=== PATIENT | female | born 1975 | race Caucasian/White ===

== ENCOUNTER 2018-08-10 14:14 | Emergency (ER) | payer OTHER ==
[~2018-08-10] VITALS: Ht 172.7 cm; Wt 82.1 kg
[2018-08-10] MEDS ORDERED: ZANTAC 150MG T150 MG PO (14:31)
[2018-08-10] MEDS ORDERED: ZYRTEC10 M5 PO (14:31)
[2018-08-10 15:08] LABS: ANION GAP 12 mmol/L (7-16); BUN 12 mg/dL (7-18); CALCIUM 9.4 mg/dL (8.5-10.1); CHLORIDE 101 mmol/L (98-107); CO2 24 mmol/L (21-32); CREATININE 0.9 mg/dL (0.6-1.3); GLUCOSE 147 mg/dL (70-99); SODIUM 137 mmol/L (136-145)
[2018-08-10 15:16] LABS: ABSOLUTE EOSINOPHILS 0.1 thou/uL (0.0-0.7); ABSOLUTE LYMPHOCYTES 1.9 thou/uL (0.8-5.3); ABSOLUTE MONOCYTES 0.6 thou/uL (0.0-1.2); BASOPHILS 0.3 %; EOSINOPHILS 0.8 %; HEMATOCRIT 42.6 % (37.0-47.0); HEMOGLOBIN 14.6 gm/dL (12.0-15.0); LYMPHOCYTES 16.6 %; MCH 29.7 pg (26.0-34.0); MCHC 34.3 g/dL (28.0-37.0); MCV 86.6 fL (80.0-100.0); MONOCYTES 5.3 %; MPV 8.3 fl. (7.2-11.1); NUCLEATED RBCS 0 /100WBC; PLATELET COUNT* 296 thou/uL (150-400); RBC 4.92 mil/uL (4.20-5.00); RDW-CV 12.9 % (10.5-14.5); WBC 11.6 thou/uL (4.0-11.0)
[2018-08-10 15:17] LABS: URINE BILIRUBIN NEGATIVE (Negative); URINE BLOOD TRACE (Negative); URINE CLARITY CLEAR; URINE COLOR YELLOW; URINE GLUCOSE-RANDOM 1+ (Negative); URINE KETONES TRACE (Negative); URINE LEUKOCYTES-REFLEX NEGATIVE (Negative); URINE NITRITE-REFLEX NEGATIVE (Negative); URINE PROTEIN NEGATIVE (Negative); URINE SPECIFIC GRAVITY >= 1.030 (1.005-1.030); URINE UROBILINOGEN 0.2 E.U./dl (0.2-1.0)
[2018-08-10 15:20] LABS: ALBUMIN 3.9 g/dL (3.4-5.0); ALKALINE PHOSPHATASE 98 U/L (46-116); LIPASE 199 U/L (73-393); SGOT 15 U/L (15-37); SGPT 37 U/L (30-65); TOTAL BILIRUBIN 0.3 mg/dL (<0.1-1.0); TOTAL PROTEIN 7.8 g/dL (6.4-8.2); TROPONIN-I LEVEL <0.06 ng/mL (<0.06)
[2018-08-10] MEDS ORDERED: OMEPRAZOLE 20 M20 M1 PO (16:20)
[2018-08-10] MEDS ORDERED: NORCO 5-325 TA1 EAC1 PO (16:22)
[2018-08-10 16:28] VITALS: BP 149/101
[2018-08-10] MEDS ORDERED: MAGIC MOUTHWASH SW&SWALLOW (16:45)
--- NOTE | 2018-08-11 11:34 | EKG ---
[place] [address] ELECTROCARDIOGRAM REPORT Name: ALHAJI SILVESTRE Room: [facility]#: [id number] Admission: 08/10/18 Attend Phys: Discharge: 08/10/18 Date of : 71 Report #: [id number] THIS REPORT FOR: //name// [facility] ED Test Date: 2018-08-10 Test Time: 15:05:23 Pat Name: ALHAJI SILVESTRE Department: Room: Gender: F Advanced Developer: : 1975 Requested By: Lane Patiño Order Number: [id number] MD: Sae Mai Measurements Intervals [place] Rate: 72 P: 49 [place]: 136 QRS: 34 QRSD: 97 T: 39 QT: 376 QTc: 412 Interpretive Statements Sinus rhythm Baseline wander in lead(s) I Compared to ECG 04/11/2007 07:34:49 No significant changes Electronically Signed On 08-11-2018 11:34:36 CDT by Sae Mai [email or web address] <ELECTRONICALLY SIGNED> By: Sae Mai MD, [facility] 08/11/18 1134 [id number] [id number] Sae Mai MD, [facility] /EPI
== END 2018-08-10 16:28 | disposition home or self-care (01) ==
LOC: M.ERS 14:14
PROVIDERS: Physician Assistant
DX: N83.201 Unspecified ovarian cyst, right side (principal); K42.9 Umbilical hernia without obstruction or gangrene; K21.9 Gastro-esophageal reflux disease without esophagitis

== ENCOUNTER 2020-10-23 12:35 | Emergency (ER) | payer OTHER ==
[~2020-10-23] VITALS: Ht 172.7 cm; Wt 72.6 kg
[~2020-10-23 12:35] MED LIST: MAGIC MOUTHWASH SW&SWALLOW; NORCO 5-325 TA1 EAC1 PO; OMEPRAZOLE 20 M20 M1 PO; ZANTAC 150MG T150 MG PO; ZYRTEC10 M5 PO
[2020-10-23 13:11] VITALS: BP 152/104
[2020-10-23] MEDS ORDERED: METFORMIN HCL500 M3 PO (13:14)
== END 2020-10-23 14:44 | disposition left against medical advice (07) ==
LOC: M.ERS 12:35
DX: Z53.21 Procedure and treatment not carried out due to patient leaving prior to being seen by health care provider (principal)